=== PATIENT | female | born 1960 | race Caucasian/White ===

== ENCOUNTER 2018-07-18 18:59 | Emergency (ER) | payer OTHER ==
[2018-07-18 20:07] VITALS: BP 169/76; PULSE 71; TEMP 98.3; BMI 26.6
--- NOTE | 2018-07-18 20:14 | PDOC ---
History of Present Illness - General Chief Complaint: Pain Stated Complaint: LT KNEE PAIN Time Seen by Provider: 07/18/18 20:08 History Source: Patient - History of Present Illness Occurred: reports: other Severity: Yes: severe Lower Extremity Pain Location: left: knee Past History - Past Medical History Allergies/Adverse Reactions: Allergies Allergy/AdvReac Type Severity Reaction Status Date / Time lisinopril Allergy Verified 07/18/18 20:09 Home Medications: Ambulatory Orders Ibuprofen [Motrin -] 2 tab PO Q6H #30 tablet 07/18/18 Tramadol HCl 50 mg PO Q6H #6 tablet MDD 200 mg 07/18/18 - Suicide/Smoking/Psychosocial Hx Smoking History: Never smoked Have you smoked in the past 12 months: No Information on smoking cessation initiated: No Hx Alcohol Use: No Drug/Substance Use Hx: No Review of Systems - Review of Systems Constitutional: No: Chills, Fever Musculoskeletal: Yes: Joint Pain. No: Joint Swelling *Physical Exam - Vital Signs Last Vital Signs Temp Pulse Resp BP Pulse Ox 98.3 F 71 18 169/76 99 07/18/18 20:04 07/18/18 20:04 07/18/18 20:04 07/18/18 20:04 07/18/18 20:04 - Physical Exam General Appearance: Yes: Appropriately Dressed, Mild Distress HEENT: positive: Normal Voice Neck: positive: Supple Respiratory/Chest: negative: Respiratory Distress Extremity: positive: Tender (diffusely to L knee, FROMI w/ pain w/ movement, limping in ED). negative: Swelling Integumentary: positive: Dry, Warm Neurologic: positive: Fully Oriented, Alert, Normal Mood/Affect Medical Decision Making - Medical Decision Making 07/18/18 20:35 46-year-old female, no significant history here with left knee pain. Patient states pain started several days ago, diffuse, worse with weight bearing. Today while doing laundry, pain worsened. Took motrin several hours ago with minimal relief. No recent trauma. Denies any other obvious inciting factors. States she might have had similar pain several years ago and had an MRI which was negative per patient see exam M/l MSK knee pain ?arthritis vs overuse -dc w/ pain control, pt has own crutches -ortho f/u for further eval *DC/Admit/Observation/Transfer Diagnosis at time of Disposition: Knee pain, left Qualifiers: Chronicity: acute Qualified Code(s): M25.562 - Pain in left knee - Discharge Dispostion Disposition: HOME Condition at time of disposition: Improved - Prescriptions Prescriptions: Ibuprofen [Motrin -] 2 tab PO Q6H #30 tablet Tramadol HCl 50 mg PO Q6H #6 tablet MDD 200 mg - Referrals Referrals: Dmitri Engel MD [Staff Physician] - - Patient Instructions Printed Discharge Instructions: DI for Knee Pain Additional Instructions: Take medication as prescribed and follow-up with Dr. Engel of orthopedics in 1-2 weeks - Post Discharge Activity
[2018-07-18] MEDS ORDERED: KETOROLAC TROMETHAMINE 60 MG/2 ML VIAL ONE (20:31)
[2018-07-18] MEDS ORDERED: KETOROLAC TROMETHAMINE 60 MG/2 ML VIAL IM ONE (20:33)
== END 2018-07-18 21:02 | disposition home or self-care (01) ==
LOC: JERFT 18:59
PROC: 3E0233Z Introduction of Anti-inflammatory into Muscle, Percutaneous Approach (ICD-10-PCS; principal; 2018-07-18)
DX: M25.562 Pain in left knee (principal)
CPT/HCPCS: 96372; 99281-25